=== PATIENT | male | born 1955 | race Caucasian/White ===

== ENCOUNTER 2017-06-02 15:59 | Emergency (ER) | payer MEDICAID, MEDICARE ==
--- NOTE | 2017-06-02 16:25 | ED Physician Chart ---
ED Chief Complaint/HPI - Patient Information Date Seen:: 06/02/17 Time Seen:: 16:10 Chief Complaint:: right knee pain History of Present Illness:: Patient has had right knee pain since yesterday. No recent trauma. Patient apparently has long history of right knee pain Allergies:: Allergies Allergy/AdvReac Type Severity Reaction Status Date / Time No Known Allergies Allergy Verified 06/02/17 16:17 Historian:: Patient Review:: Nurse's Note Reviewed ED Review of Systems - Review of Systems General/Constitutional: No fever, No chills Skin: No skin lesions Head: No headache Eyes: No loss of vision ENT: No earache Neck: No neck pain Cardio Vascular: No chest pain, No palpitations Pulmonary: No SOB GI: No nausea, No vomiting, No diarrhea G/U: No dysuria Musculoskeletal: Bone or joint pain Endocrine: No polyuria, No polydipsia Psychiatric: Prior psych history Hematopoietic: No bruising Allergic/Immuno: No urticaria Neurological: No syncope ED Past Medical History - Past Medical History Past Medical History: HTN Family History: Diabetes Melitus, HTN Social History: Smoker, Care Facility Surgical History: None Psychiatricy History: Schizophrenia Medication: Reviewed Family Medical History - Family Member Mother History Unknown: Yes Ethnicity: Unknown Living Status: Unknown ED Physical Exam - Physical Examination General/Constitutional: Well-developed, well-nourished, Alert, No distress Head: Atraumatic Eyes: Lids, conjuctiva normal, PERRL Skin: Nl inspection, No rash ENMT: External ears, nose nl, Nasal exam nl, Lips, teeth, gums nl, Oropharynx nl Neck: No nuchal rigidity Respiratory: Nl effort/Exclusion, Clear to Auscultation, No Wheeze/Rhonchi/Rales Cardio Vascular: RRR, No murmur, gallop, rubs GI: No tenderness/rebounding/guarding, No organomegaly, No hernia Extremities: Normal digits & nails Other Extremities comments:: Right knee: Intermittent tenderness over the patella; full range of motion; collateral and cruciate ligaments intact; skin normal ED Labs/Radiology/EKG Results - Radiology Results Results: Right knee x-ray normal ED Assessment - Assessment General Assessment: Right knee pain probably secondary to arthritis. I spoke to Dr. Renee and he agreed patient could return to his facility ED Septic Shock - . Is Septic Shock (SBP<90, OR Lactate>4 mmol\L) present?: No ED Reassessment (Disposition) - Reassessment Reassessment Condition:: Unchanged - Diagnosis Diagnosis:: Right knee pain secondary to arthritis - Aftercare/Follow up Instructions Aftercare/Follow-Up Instructions:: Refer to Discharge Instructions - Patient Disposition Discharge/Transfer:: [facility] Care - SNF Condition at Disposition:: Stable, Unchanged
--- NOTE | 2017-06-03 08:36 | Diagnostic Imaging Report ---
Right knee 3 views Indication: pain Comparison: none Findings: Mild degenerative changes are noted including minimal narrowing of the medial knee compartment. There may be a small knee effusion. No evidence of an acute fracture or significant focal soft tissue swelling. Diffuse atherosclerosis is noted. Impression: No evidence of an acute fracture. Mild degenerative changes and probable small knee effusion. Atherosclerotic vascular disease. In the setting of trauma, if clinical symptoms persist and there is continued concern for an occult fracture, follow up exams in 5-7 days is suggested.
== END 2017-06-02 18:14 | disposition short-term general hospital (02) ==
LOC: ER 15:59
DX: M17.5 Other unilateral secondary osteoarthritis of knee (principal); I10 Essential (primary) hypertension; F17.200 Nicotine dependence, unspecified, uncomplicated
CPT/HCPCS: 73562-TC-RT; Z7502